=== PATIENT | male | born 1995 | race Caucasian/White ===

== ENCOUNTER 2019-11-15 11:03 | Emergency (ER) | payer OTHER ==
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
== END 2019-11-15 13:15 | disposition home or self-care (01) ==
LOC: KA.ED 11:03
DX: S40.012A Contusion of left shoulder, initial encounter (principal); V59.40XA Driver of pick-up truck or van injured in collision with unspecified motor vehicles in traffic accident, initial encounter
CPT/HCPCS: 81003; 99283; 99284